=== PATIENT | female | born 1965 | race Caucasian/White ===

== ENCOUNTER 2018-03-14 14:35 | Observation (INO) | payer BC ==
[~2018-03-14] VITALS: Ht 162.6 cm; Wt 82.0 kg
[~2018-03-14 14:35] MED LIST: CEPH500 PO; ESCI10 PO; LORA1 PO; Percocet 10-321 EACH PO; SIMV5 PO; Zofran4 MG PO
[2018-03-14] MEDS ORDERED: ASPI325 PO (14:51)
[2018-03-14] MEDS ORDERED: MIRALAX17 GM PO (14:52)
[2018-03-14] MEDS ORDERED: OMEPRAZOLE MAGN20 MG PO (14:52)
[2018-03-14] MEDS ORDERED: MUPI1NAS (14:52)
[2018-03-14] MEDS ORDERED: DOCU100 PO (14:53)
[2018-03-14] MEDS ORDERED: TYLENOL325 MG PO (14:53)
[2018-03-14] MEDS ORDERED: MELO7.5 PO (14:54)
[2018-03-14] MEDS ORDERED: ONDA4 PO (14:54)
[2018-03-14] MEDS ORDERED: HYDMOR2 PO (14:55)
[2018-03-14] MEDS ORDERED: SIMV80 PO (21:13)
[2018-03-14] MEDS ORDERED: ESCI10 PO (21:13)
[2018-03-15 04:00] LABS: BASOPHILS ABSOLUTE AUTO 0.04 K/mm3 (0.00-0.23); BASOPHILS PERCENT AUTO 1 % (0-2); EOSINOPHILS ABSOLUTE AUTO 0.14 K/mm3 (0.00-0.68); EOSINOPHILS PERCENT AUTO 3 % (0-6); Hematocrit 27.2 % (33.0-51.0); Hemoglobin 8.3 g/dL (11.5-16.0); IMMATURE GRAN PERCENT AUTO 0 % (0-1); LYMPHOCYTES ABSOLUTE AUTO 1.78 K/mm3 (0.84-5.20); LYMPHOCYTES PERCENT AUTO 40 % (21-46); MONOCYTES ABSOLUTE AUTO 0.35 K/mm3 (0.16-1.47); MONOCYTES PERCENT AUTO 8 % (4-13); Mean Corpuscular HGB 31.1 pg (26.0-34.0); Mean Corpuscular HGB Conc 30.5 g/dL (31.5-36.5); Mean Corpuscular Volume 102 fL (80-100); Mean Platelet Volume 10.2 fL (9.1-12.4); NEUTROPHILS ABSOLUTE AUTO 2.15 K/mm3 (1.96-9.15); NEUTROPHILS PERCENT AUTO 48 % (41-73); Platelet Count 184 K/mm3 (150-400); RDW Coefficient Variation 14.4 % (11.7-14.2); RDW Standard Deviation 53.1 fL (35.1-46.3); Red Blood Cell Count 2.67 M/mm3 (3.80-5.20); White Blood Cell Count 4.46 K/mm3 (4.00-11.30)
[2018-03-15 04:24] LABS: Anion Gap 6 mmol/L (6-16); Blood Urea Nitrogen 17 mg/dL (8-24); Bun/Creatinine Ratio 21.4 (12.0-20.0); CO2, Blood 29 mmol/L (21-32); Calcium, Blood 8.3 mg/dL (8.5-10.1); Chloride, Blood 110 mmol/L (98-108); Creatinine, Blood 0.79 mg/dL (0.40-1.00); Glomerular Filtration Rate >60 (60-); Glucose, Blood 96 mg/dL (70-99); Potassium, Blood 4.3 mmol/L (3.5-5.5); Sodium, Blood 145 mmol/L (136-145)
[2018-03-16] MEDS ORDERED: LIDO700A20 TOP (11:53)
== END 2018-03-16 12:44 | disposition home or self-care (01) ==
LOC: ER 14:35 → SURS 19:23
PROVIDERS: Internal Medicine
DX: M25.551 Pain in right hip (principal); F32.9 Major depressive disorder, single episode, unspecified; E78.00 Pure hypercholesterolemia, unspecified; M19.90 Unspecified osteoarthritis, unspecified site; Z96.641 Presence of right artificial hip joint; Z79.82 Long term (current) use of aspirin; Z79.899 Other long term (current) drug therapy; Z87.891 Personal history of nicotine dependence; W01.0XXA Fall on same level from slipping, tripping and stumbling without subsequent striking against object, initial encounter
CPT/HCPCS: 36415; 73502; 80048; 85025; 96374; 96375; 96376; 97110; 97116; 97161; 97166; 97530; 97535; 99285-25; G0378; G8978; G8979; G8987; G8988; J1170; J1885; J2405; J3010

== ENCOUNTER 2019-01-02 12:12 | Emergency (ER) | payer BC ==
[~2019-01-02] VITALS: Ht 162.6 cm; Wt 81.7 kg
[~2019-01-02 12:12] MED LIST changes: +ASPI325 PO; +DOCU100 PO; +HYDMOR2 PO; +LIDO700A20 TOP; +MELO7.5 PO; +MIRALAX17 GM PO; +MUPI1NAS; +OMEPRAZOLE MAGN20 MG PO; +ONDA4 PO; +SIMV80 PO; +TYLENOL325 MG PO
[2019-01-02] MEDS ORDERED: HYDMOR2 PO (13:53)
[2019-01-02] MEDS ORDERED: Robaxin-750750 MG PO (13:53)
== END 2019-01-02 14:00 | disposition home or self-care (01) ==
LOC: ER 12:12
DX: M25.551 Pain in right hip (principal); G89.29 Other chronic pain; W01.0XXA Fall on same level from slipping, tripping and stumbling without subsequent striking against object, initial encounter
CPT/HCPCS: 73502; 99283-25

== ENCOUNTER → 2020-03-13 | Outpatient (CLI) | payer BC ==
[~2020-03-13] MED LIST changes: +Robaxin-750750 MG PO
== END | disposition home or self-care (01) ==
LOC: LAB SHORT 17:55 → LAB 17:55
DX: N39.0 Urinary tract infection, site not specified (principal)
CPT/HCPCS: 87077; 87086; 87186